=== PATIENT | female | born 1990 | race African-American/Black ===

== ENCOUNTER 2018-03-11 18:25 | Emergency (ER) | payer MEDICAID ==
[~2018-03-11] VITALS: Ht 149.9 cm; Wt 1.0 kg
[~2018-03-11 18:25] MED LIST: ACYC200C PO
[2018-03-11 18:59] LABS: KETONES URINE 2+ (NEGATIVE); LEUKOCYTE ESTERASE URINE NEGATIVE (NEGATIVE); NITRITE URINE NEGATIVE (NEGATIVE); OCCULT BLOOD URINE 1+ (NEGATIVE); PH URINE 6.5 (4.5-8.0); PROTEIN URINE NEGATIVE (NEGATIVE); SPECIFIC GRAVITY URINE 1.028 (1.005-1.030)
[2018-03-11 19:04] LABS: CLARITY URINE HAZY (CLEAR); COLOR URINE YELLOW (YELLOW)
[2018-03-11 19:19] LABS: BASOPHILS % 0.7 % (0.0-2.0); EOSINOPHILS % 2.3 % (0.0-5.0); HEMOGLOBIN. 12.5 g/dL (12.0-16.0); LYMPHOCYTES % 41.4 % (20.0-50.0); MEAN CORPUSCULAR HEMOGLOBIN 31.1 pg (28.0-32.0); MEAN CORPUSCULAR VOLUME 92.1 fL (81.0-99.0); MEAN PLATELET VOLUME 7.9 fl (7.4-10.4); NEUTROPHILS % 47.6 % (40.0-76.0); PLATELET 283 x1000/uL (130-400); RED BLOOD CELL COUNT 4.01 mill/uL (4.2-5.4); RED CELL DISTRIBUTION WIDTH 13.7 % (11.6-14.6)
[2018-03-11 19:23] LABS: CHLORIDE 105 mEq/L (98-107)
[2018-03-11 19:24] LABS: PROTHROMBIN TIME 10.5 sec (9.4-11.6)
[2018-03-11] MEDS ORDERED: SODIUM CHLORIDE 0.9% 1,000 ML IV ONE (22:30)
[2018-03-12] MEDS ORDERED: ONDANSETRON HCL 4MG/2ML VIAL IV ONE (01:00)
[2018-03-12 02:01] VITALS: BP 118/66
== END 2018-03-12 02:05 | disposition home or self-care (01) ==
LOC: ER 18:59
DX: O21.0 Mild hyperemesis gravidarum (principal); O26.891 Other specified pregnancy related conditions, first trimester; O99.331 Smoking (tobacco) complicating pregnancy, first trimester; G40.909 Epilepsy, unspecified, not intractable, without status epilepticus; Z3A.01 Less than 8 weeks gestation of pregnancy
CPT/HCPCS: 36415; 76801; 76817; 80053; 81003; 81025; 83690; 84702; 85025; 85610; 86850; 86900; 86901; 96361; 96374; 99285; J2405; J7030

== ENCOUNTER 2018-06-04 05:22 | Emergency (ER) | payer MEDICAID, OTHER ==
[~2018-06-04] VITALS: Ht 165.1 cm; Wt 65.0 kg
[2018-06-04] MEDS ORDERED: SODIUM CHLORIDE 0.9% 1,000 ML IV ONE (06:10)
[2018-06-04] MEDS ORDERED: LEVETIRACETAM 500MG PREMIX 100 ML IV ONE (06:15)
[2018-06-04 07:18] LABS: EOSINOPHILS % 13.4 % (0.0-5.0); HEMATOCRIT. 37.3 % (36.0-48.0); HEMOGLOBIN. 12.6 g/dL (12.0-16.0); MEAN CORPUSCULAR HEMOGLOBIN 32.1 pg (28.0-32.0); MEAN CORPUSCULAR VOLUME 94.6 fL (81.0-99.0); MEAN PLATELET VOLUME 7.9 fl (7.4-10.4); MONOCYTES % 7.5 % (2.0-8.0); NEUTROPHILS % 55.1 % (40.0-76.0); PLATELET 286 x1000/uL (130-400); RED BLOOD CELL COUNT 3.94 mill/uL (4.2-5.4); RED CELL DISTRIBUTION WIDTH 14.7 % (11.6-14.6)
[2018-06-04 07:22] LABS: CHLORIDE 104 mEq/L (98-107)
[2018-06-04 09:20] VITALS: BP 115/77
== END 2018-06-04 09:36 | disposition home or self-care (01) ==
LOC: ER 05:22
DX: R56.9 Unspecified convulsions (principal)
CPT/HCPCS: 36415; 80053; 81025; 85025; 96365; 99284; J1953; J7030; Z7610

== ENCOUNTER 2018-06-08 04:44 | Emergency (ER) | payer OTHER ==
[~2018-06-08] VITALS: Ht 149.9 cm; Wt 66.0 kg
[2018-06-08] MEDS ORDERED: LEVETIRACETAM 500MG PREMIX 100 ML IV ONE (06:45)
[2018-06-08 07:05] LABS: EOSINOPHILS % 12.6 % (0.0-5.0); HEMOGLOBIN. 12.3 g/dL (12.0-16.0); LYMPHOCYTES % 19.8 % (20.0-50.0); MEAN CORPUSCULAR HEMOGLOBIN 31.6 pg (28.0-32.0); MEAN CORPUSCULAR VOLUME 94.7 fL (81.0-99.0); MEAN PLATELET VOLUME 8.6 fl (7.4-10.4); MONOCYTES % 5.5 % (2.0-8.0); NEUTROPHILS % 61.1 % (40.0-76.0); PLATELET 273 x1000/uL (130-400); RED CELL DISTRIBUTION WIDTH 14.7 % (11.6-14.6)
[2018-06-08 07:12] LABS: CHLORIDE 105 mEq/L (98-107)
[2018-06-08 07:17] LABS: CLARITY URINE CLEAR (CLEAR); COLOR URINE YELLOW (YELLOW); KETONES URINE NEGATIVE (NEGATIVE); LEUKOCYTE ESTERASE URINE NEGATIVE (NEGATIVE); NITRITE URINE NEGATIVE (NEGATIVE); OCCULT BLOOD URINE NEGATIVE (NEGATIVE); PH URINE 5.5 (4.5-8.0); PROTEIN URINE NEGATIVE (NEGATIVE); SPECIFIC GRAVITY URINE 1.025 (1.005-1.030); UROBILINOGEN URINE 0.2 E.U./dL (0.2-1.0)
[2018-06-08 09:00] VITALS: BP 129/87
== END 2018-06-08 09:11 | disposition home or self-care (01) ==
LOC: ER 04:44
DX: G40.909 Epilepsy, unspecified, not intractable, without status epilepticus (principal); F17.200 Nicotine dependence, unspecified, uncomplicated
CPT/HCPCS: 36415; 80053; 81003; 85025; 96365; 99284; J1953

== ENCOUNTER 2018-08-02 07:18 | Emergency (ER) | payer OTHER ==
[~2018-08-02] VITALS: Ht 165.1 cm; Wt 64.0 kg
[2018-08-02] MEDS ORDERED: SODIUM CHLORIDE 0.9% 1,000 ML IV ONE (07:40)
[2018-08-02] MEDS ORDERED: LEVETIRACETAM 1000MG/100ML 100 ML IV ONE (07:45)
[2018-08-02] MEDS ORDERED: LEVETIRACETAM 500MG TABLET PO ONE (08:00)
[2018-08-02 08:10] LABS: CHLORIDE 104 mEq/L (98-107)
[2018-08-02 08:30] LABS: HCG SCREEN NEGATIVE
[2018-08-02 10:04] VITALS: BP 127/82
== END 2018-08-02 10:29 | disposition home or self-care (01) ==
LOC: ER 07:18
DX: R56.9 Unspecified convulsions (principal); F12.10 Cannabis abuse, uncomplicated
CPT/HCPCS: 36415; 80048; 81025; 84703; 96365; 99285; J1953; J7030

== ENCOUNTER 2021-10-28 12:25 | Emergency (ER) | payer MEDICAID, OTHER ==
[~2021-10-28] VITALS: Ht 149.9 cm; Wt 66.0 kg
[~2021-10-28 12:25] MED LIST changes: -ACYC200C PO; +ACYC200C31 PO
[2021-10-28 12:34] VITALS: BP 154/94
[2021-10-28] MEDS ORDERED: LEVE500T98 MT (12:45)
[2021-10-28] MEDS ORDERED: LACO50TA2 MT ×2 (12:45→13:02)
== END 2021-10-28 13:12 | disposition home or self-care (01) ==
LOC: ER 12:25
DX: R56.9 Unspecified convulsions (principal); Z76.0 Encounter for issue of repeat prescription
CPT/HCPCS: 99281